=== PATIENT | male | born 1975 | race Caucasian/White ===

== ENCOUNTER 2018-07-06 19:09 | Emergency (ER) | payer OTHER, SELFPAY ==
[2018-07-06 19:13] VITALS: BP 111/71; PULSE 91; RESP 17; TEMP 36.8; O2SAT 97; BMI 20.9
--- NOTE | 2018-07-06 20:04 | CT_ITS ---
STUDY: CT BRAIN WITH AND WITHOUT CONTRAST REASON FOR EXAM: Male, 42 years old. Headache. RADIATION DOSAGE (If Supplied By Facility): CTDIvol = ( 24.09 ) mGy, DLP = ( 1083.75 ) mGycm TECHNIQUE: Transaxial CT imaging of the brain was performed pre and post contrast administration. The examination was performed with intravenous administration of 100 IV Isovue 370. Individualized dose optimization techniques were used for this CT. COMPARISON: None. FINDINGS: Normal soft tissue structures. Normal calvarium. Normal size ventricles and extra-axial spaces for the patient's age. Normal white matter tracts of the cerebral hemispheres. Normal basal ganglia and thalami. Normal brainstem. Normal cerebellum. There is no intracranial hemorrhage. There are no findings of an acute ischemic infarction. There is mucoperiosteal inflammatory disease of the paranasal sinuses consistent with severe chronic sinusitis. CT/CTA Head W/WO Contrast IMPRESSION: Normal unenhanced and enhanced CT scan of the brain. Severe sinusitis. Electronically Signed: Pernell Chand MD at 21:14 EDT , Service support ,
[2018-07-06] MEDS: DiphenhydrAMINE 50 MG/ML Syringe 25 MG IV (20:19)
[2018-07-06] MEDS: 0.9% Normal Saline 1,000 ML 1000 ML IV (20:19)
[2018-07-06] MEDS: Metoclopramide 10 MG/2 ML Vial IV (20:19)
[2018-07-06] MEDS: Ketorolac 30 MG/ML Syringe IV (21:29)
[2018-07-06 21:31] VITALS: BP 121/75; PULSE 84; RESP 18; O2SAT 98
--- NOTE | 2018-07-06 21:57 | ED.DCSUM_ITS ---
- ER Visit Summary Date of Service: 07/06/18 Chief Complaint: [Headache] History of Present Illness: The patient is a 42 M [presents to the emergency department complaint of a headache that started yesterday. Patient states that initially the pain started off mildly to the left side of his head but then be came severe. Patient states that its most severe pain was about an 8 or 9 out of 10. Patient states that he took some ibuprofen and it seemed to help the pain a little bit but then the pain shifted to the right side of his head. He describes it as throbbing. He complains of photophobia. Patient denies any nausea or vomiting. Patient states that he has had some slurred speech and some confusion and that he had a hard time finding words to speak at times today per his significant other. Patient did have a flulike illness about 3-1/2 weeks ago but otherwise has not been ill. He has had no falls or head injuries. Currently rates his headache a 6 out of 10. Patient does have a history of migraines and narcolepsy.] Physical Examination: [HEENT-PERRLA, EOMI. Cranial nerves II through XII grossly intact. TMs clear. Mucous membranes moist. No adenopathy. Cardiovascular-regular rate and rhythm without murmur or ectopy Lungs-clear to auscultation, chest wall stable without crepitus or subcu emphysema Abdomen-normoactive bowel sounds, soft, nontender, no rebound or rigidity, no peritoneal signs. Neuro [id number] and heel schmidt testing within normal limits, negative Romberg, negative pronator drift, fundi benign Extremities-intact ?4, normal range of motion, normal pulses, atraumatic] Test Results: [CTA of the brain was obtained and was read as normal.] Emergency Department Course and Treatment: [Patient was medicated with Reglan, Benadryl, Toradol, and a liter normal same fluid bolus and symptoms resolved.] Treatment Plan: [Patient to follow-up with neurology the next 3-5 days. Patient to return if worsening headache, difficulty with balance or speech, or condition should worsen anyway.] Disposition: [Discharged home in stable condition] Impression: [Migrainous cephalgia] This note was generated with [employer] software. It may contain incorrect words, spelling, and punctuation that were not noted in review of the chart prior to signing ED Disposition - Plan for ED Patient: Referrals: Tomasz Salinas [Primary Care Provider] -
--- NOTE | 2018-07-06 21:58 | ED.DEP ---
ED Disposition - Plan for ED Patient: Instructions: ED Headache Migraine Referrals: Tomasz Salinas [Primary Care Provider] - Gómez Alberto MD [STAFF PHYSICIAN] - 5-7 Days
[2018-07-06 22:06] VITALS: PULSE 68; RESP 16; O2SAT 97
== END 2018-07-06 22:06 | disposition home or self-care (01) ==
LOC: ED 20:10
PROVIDERS: Emergency Provider Emergency Medicine; Family Provider Family Medicine; PCP Family Medicine
DX: G43.909 Migraine, unspecified, not intractable, without status migrainosus (principal)
CPT/HCPCS: 70496; 96361; 96374; 96375; 99283; J7030; Q9967; A4216

== ENCOUNTER → 2025-03-01 | Outpatient (CLI) | payer OTHER, SELFPAY ==
[2025-03-01 18:23] LABS: Barbiturate Urine NEGATIVE (< 200 ng/mL); Benzodiazepine Urine NEGATIVE (< 200 ng/mL); PCP Urine NEGATIVE (< 25 ng/mL); THC Urine NEGATIVE (< 50 ng/mL)
== END | disposition home or self-care (01) ==
LOC: MTLAB 15:03
PROVIDERS: PCP Family Medicine; Referring Provider Internal Medicine Pulmonary Disease; Visit Provider Internal Medicine Pulmonary Disease
DX: G47.10 Hypersomnia, unspecified (principal)
CPT/HCPCS: 80307